=== PATIENT | male | born 1970 | race Caucasian/White ===

== ENCOUNTER 2023-03-09 00:18 | Emergency (ER) | payer OTHER, SELFPAY ==
--- OUTSIDE RECORDS SUMMARY | 2023-03-09 00:23 | XMS REPORT | Continuity of Care Document ---
:1970 Author Organization [facility] t Address [address] [facility] [address] [place] [address] Care Team Providers Name Role Phone Meaghan Leal MD Primary Care Physician NANETTE ASCENCIO Attending Clinician Unavailable Robert Dunn DO Attending Clinician [facility] Attending Clinician Unavailable MESHA GRANDA Attending Clinician Unavailable Jena Cannon MD Attending Clinician [id number] Attending Clinician Unavailable TESTING, SK COVID Attending Clinician Unavailable GAIL MCGARRY Attending Clinician Unavailable Gail Mcgarry MD Attending Clinician COVID-PFIZER VACC-2, ESDRAS Attending Clinician Unavailedilma hardwick COVID-PFIZER VACC-1, ESDRAS Attending Clinician UnavailMeaghan Sequeira MD Attending Clinician EUGENIO COREAS Attending Clinician Unavailable Payers Payer Name Policy Type Policy Number Effective Date Expiration Date S ourFormerly [facility] 2 [id number] 2021 00:00:00 BCBS 2 [id number] 2022 00:00:00 Problems Condition Condition Condition Status Onset Resolution Last Treating Co mments Source Name Details Category Date Date Treatment Clinician Date Hypertensi Hypertensi Disease Active 2021-04 M ethodi on on [facility] 00:00: Hospita 00 l Allergic Allergic Disease Active 2021-04 Metho di rhinitis rhinitis 0[facility] due to due to 00:00: Hospita pollen pollen 00 l Gastroesop Gastroesop Disease Active 2021-04 M ethodi hageal hageal 0-14 st reflux reflux 00:00: Hospita disease disease 00 l without without esophagiti esophagiti s s Benign Benign Disease Active 2020-04 Lindsey essential essential 0-22 Seyb old HTN HTN 00:00: - 00 Externa l Allergies, Adverse Reactions, Alerts This patient has no known allergies or adverse reactions. Social History Social Habit Start Date Stop Date Quantity Comments Source Sexual orientation 2022-08-01 [facility] 18:[facility]:59 [facility] Exposure to Not sure Lindsey leonard SARS-CoV-2 (event) History of Social 2023-02-05 2023-02-[address] function 00:00:00 00:00:00 Hospital Alcohol intake 2023-02-05 2023-02-05 Ex-drinker [facility] 00:00:00 00:00:00 (finding) Hospital Tobacco Comment 2022-01-19 2022-01-19 quit 30 years [facility] 00:00:00 00:00:00 ago Hospital Tobacco use and 2022-01-19 2022-01-19 Former smokeless [facility] exposure 00:00:00 00:00:00 tobacco user Hospital Alcohol Comment 2021-06-29 2021-06-29 Occ [facility] 00:00:00 00:00:00 Hospital History of tobacco 1981-01-27 User of Lindsey Sanon - use 00:00:00 smokeless External tobacco Sex Ass[birth year] At [birth year] M [facility] 00:00:00 00:00:00 Hospital Smoking Status Start Date Stop Date Source Ex-smoker 2023-02-15 00:00:00 2023-02-15 00:00:00 Lindsey Moses eybold - External Medications Ordered Filled Start Stop Current Ordering Indication Dosage Frequency Signature Comments Components Source Medication Medication Date Date Medication? Clinician (SIG) Name Name Multiple 2022-04 Yes Take by Lindsey Vitamins-Mi 1-10 mouth Seybold nerals 11:02: - (MULTIVITAL 46 Externa OR) l methylPREDN 2022-04 Yes 1{carrillo} Take 1 carrillo Lindsey ISolone 4 1-10 by mouth Seybol d MG oral 00:00: See Admin - Tablet 00 Instructio Externa Therapy ns Use as l Pack directed. azithromyci 2022-04- No [id number] Take 2 Method[facility] n 04-[address] (Zithromax 00:00: 05:59 (500 mg Hos padilla Z-Carrillo) 250 00 :00 total) by l MG tablet mouth daily for 1 day, THEN 1 tablet (250 mg total) daily for 4 days. Azithromyci 2022-04- Yes Take by Josias chester n 250 MG 04-16 mouth. Seybold oral Tablet 00:00: 05:59 - 00 :00 Externa l azithromyci 2022-04- No [id number] Take 2 Methodi n 04-[address] (Zithromax 00:00: 00:00 (500 mg Hos padilla Z-Carrillo) 250 00 :00 total) by l MG tablet mouth daily for 1 day, THEN 1 tablet (250 mg total) daily for 4 days. triamcinolo 2022-04- No [id number] 40mg M ethodi ne 02-05 st acetonide 17:15: 17:03 Hospita (KENALOG-40 00 :00 l ) injection 40 mg amLODIPine Yes TAKE 1 Metho di (NORVASC) 5 6-[address] mg tablet 00:00: DAILY Hospita 00 l lisinopriL Yes TAKE 1 Metho di (PRINIVIL) 6-[address] 20 mg 00:00: DAILY Hospita tablet 00 l omeprazole Yes TAKE 1 Metho di (PriLOSEC) 6-[address] 40 MG 00:00: DAILY Hospita capsule 00 l omeprazole 2021-04- No TAKE 1 Meth racquel (PriLOSEC) 2-26 06-[address] 40 MG 00:00: 00:00 DAILY Hospita capsule 00 :00 l lisinopriL 2022-1 2023- No TAKE 1 Meth racquel (PRINIVIL) 06-03- TABLET st 20 mg 00:00: 00:00 DAILY Hospita tablet 00 :00 l amLODIPine 2021-04- No TAKE 1 Meth racquel (NORVASC) 5 06-03- TABLET st mg tablet 00:00: 00:00 DAILY Hospit a 00 :00 l amLODIPine 2021- No TAKE 1 Meth racquel (NORVASC) 5 01-[address] mg tablet 00:00: 00:00 DAILY Hospit a 00 :00 l omeprazole 2021- No TAKE 1 Meth racquel (PriLOSEC) 01-[address] 40 MG 00:00: 00:00 DAILY Hospita capsule 00 :00 l lisinopriL 2021- No TAKE 1 Meth racquel (PRINIVIL) 01-[address] 20 mg 00:00: 00:00 DAILY Hospita tablet 00 :00 l Benzonatate Yes 100mg Take 100 K elsey 100 MG oral 6-17 mg by Seybold Capsule 00:00: mouth 3 - 00 times Externa daily l predniSONE 0 2022- No 50mg Take 50 mg Lindsey (DELTASONE) 6-17 11-10 by mouth Sey bold 50 MG oral 00:00: 00:00 daily - tablet 00 :00 Externa l Montelukast Yes Lindsey (SINGULAIR) 6-14 Seybold 10 MG oral 00:00: - Tablet 00 Externa tablet l Albuterol Yes TAKE 2 Lindsey HFA 108 (90 6-13 PUFFS Seybold Base) 00:00: EVERY 4 - MCG/ACT IN 00 HOURS Exter na AERS NEEDED FOR l WHEEZING FOR 10 DAYS BRONCHOSPA SMS FLUTICASONE Yes TAKE 2 Carmelina ey PROPIONATE, 6-13 SPRAYS IN Sey bold NASAL, 50 00:00: EACH - MCG/ACT 00 NOSTRIL 1 Externa nasal TIME PER l Suspension DAY CVS Nasal Yes TAKE 2 Lindsey [place] 0.05 6-13 SPRAYS IN Seyb old % nasal 00:00: EACH - Solution 00 NOSTRIL 2 Help Desk Manager a TIMES PER l DAY FOR 3 DAYS. D/C AFTER 3 DAYS Multiple 2021- Yes Take by Lindsey Vitamins-Mi 3-21 mouth Seybold nerals 14:19: (MULTIVITAL 14 OR) Multiple Yes Take by Lindsey Vitamins-Mi 3-21 mouth Seybold nerals 14:19: (MULTIVITAL 14 OR) Multiple 2020-04 Yes Take by Lindsey Vitamins-Mi 0-22 mouth Seybold nerals 13:36: (MULTIVITAL 46 OR) Amlodipine 2020-04 Yes Lindsey Besylate 5 0-20 Seybold MG oral 00:00: Tablet 00 Omeprazole 2020-04 Yes Lindsey 40 MG oral 0-20 Seybold Delayed 00:00: Release 00 Capsule Lisinopril 2020-04 Yes Lindsey 20 MG oral 0-20 Seybold Tablet 00:00: 00 Amlodipine 2020-04 Yes Lindsey Besylate 5 0-20 Seybold MG oral 00:00: - Tablet 00 Externa l Omeprazole 2020-04 Yes Lindsey 40 MG oral 0-20 Seybold Delayed 00:00: - Release 00 Externa Capsule l Lisinopril 2020-04 Yes Lindsey 20 MG oral 0-20 Seybold Tablet 00:00: - 00 Externa l Amlodipine 2020-04 Yes Lindsey Besylate 5 0-20 Seybold MG oral 00:00: Tablet 00 Omeprazole 2020-04 Yes Lindsey 40 MG oral 0-20 Seybold Delayed 00:00: Release 00 Capsule Lisinopril 2020-04 Yes Lindsey 20 MG oral 0-20 Seybold Tablet 00:00: 00 Amlodipine 2020-04 Yes Lindsey Besylate 5 0-20 Seybold MG oral 00:00: Tablet 00 Omeprazole 2020-04 Yes Lindsey 40 MG oral 0-20 Seybold Delayed 00:00: Release 00 Capsule Lisinopril 2020-04 Yes Lindsey 20 MG oral 0-20 Seybold Tablet 00:00: 00 Immunizations Ordered Filled Immunization Date Status Comments [facility] e Immunization Name Name Covid-19 Vaccine 2021-02-17 Completed Lindsey richards ([employer] Mrna-lnp, 00:00:00 [place] Protein, Pf, 30mcg/0.3ml,IM Covid-19 Vaccine 2021-02-17 Completed Lindsey S eybold ([employer] Mrna-lnp, 00:00:00 [place] Protein, Pf, 30mcg/0.3ml,IM Influenza Virus 2021-01-27 Completed Lindsey ybold Vaccine, age 6 00:00:00 months and up Covid-19 Vaccine 2021-01-27 Completed Lindsey S eybold ([employer] Mrna-lnp, 00:00:00 [place] Protein, Pf, 30mcg/0.3ml,IM Influenza Virus 2021-01-27 Completed Lindsey ybold Vaccine, age 6 00:00:00 months and up Covid-19 Vaccine 2021-01-27 Completed Lindsey S eybold ([employer] Mrna-lnp, 00:00:00 [place] Protein, Pf, 30mcg/0.3ml,IM Influenza Virus 2021-01-27 Completed Lindsey Rodriguez ybold Vaccine, age 6 00:00:00 months and up Covid-19 Vaccine 2021-01-27 Completed Lindsey S shilohbopal ([employer] Mrna-lnp, 00:00:00 [place]ton Protein, Pf, 30mcg/0.3ml,IM Shingles IM 2020 Completed Lindsey Seybol d ([employer]) 00:00:00 Shingles IM 2020 Completed Lindsey Seybol d (Shingrix) 00:00:00 Shingles IM 2020-08-18 Completed Lindsey Seybol d (S[employer]rix) 00:00:00 Shingles IM 2020-08-18 Completed Lindsey Seybol d ([employer]rix) 00:00:00 Shingles IM Unknown Completed Lindsey Seybol d ([employer]rix) - External Shingles IM Unknown Completed Lindsey Seybol d ([employer]) - External Influenza Virus Unknown Completed Lindsey ybold Vaccine, age 6 - External months and up Covid-19 Vaccine Unknown Completed Lindsey S shilohbold ([employer] Mrna-lnp, - Ext ernal Carlton Protein, Pf, 30mcg/0.3ml,IM Covid-19 Vaccine Unknown Completed Lindsey S shilohbold ([employer] Mrna-lnp, - Ext ernal Carlton Protein, Pf, 30mcg/0.3ml,IM FLUCELVAX QUAD PF Unknown Completed [facility] Vital Signs Vital Name Observation Time Observation Value Comments Source Systolic blood 2023-02-15 17:04:00 137 mm[Hg] Lindsey Seybold - pressure External Diastolic blood 2023-02-15 17:04:00 89 mm[Hg] Kelse y Seybold - pressure External Heart rate 2023-02-15 17:01:00 83 /min Lindsey S eybold - External Body temperature 2023-02-15 17:01:00 37.06 Perla Carmelina ey Seybold - External Respiratory rate 2023-02-15 17:01:00 16 /min Carmelina ey Seybold - External Body height 2023-02-15 17:01:00 175.3 cm Lindsey S eybold - External Body weight 2023-02-15 17:01:00 108.41 kg Lindsey S eybold - External BMI 2023-02-15 17:01:00 35.29 kg/m2 Lindsey S eybold - External Body height 2021-06-26 19:18:00 175.3 cm Lindsey S eybold Body weight 2021-06-26 19:18:00 110.224 kg Lindsey S eybold BMI 2021-06-26 19:18:00 35.88 kg/m2 Lindsey S eybold Systolic blood 2021-06-26 18:49:00 110 mm[Hg] Lindsey Seybold pressure Diastolic blood 2021-06-26 18:49:00 84 mm[Hg] Kelse y Seybold pressure Heart rate 2021-06-26 18:49:00 72 /min Lindsey S eybold Body temperature 2021-06-26 18:49:00 38 Perla Carmelina ey Seybold Respiratory rate 2021-06-26 18:49:00 16 /min Carmelina ey Seybold Body height 2021-06-26 18:49:00 175.3 cm Lindsey S eybold Body weight 2021-06-26 18:49:00 110.224 kg Lindsey S eybold BMI 2021-06-26 18:49:00 35.88 kg/m2 Lindsey S eybold Systolic blood 2021-01-27 18:33:00 126 mm[Hg] Lindsey Seybold pressure Diastolic blood 2021-01-27 18:33:00 84 mm[Hg] Kelse y Seybold pressure Heart rate 2021-01-27 18:33:00 75 /min Lindsey S eybold Body temperature 2021-01-27 18:33:00 36.89 Perla Carmelina ey Seybold Respiratory rate 2021-01-27 18:33:00 16 /min Carmelina ey Seybold Body height 2021-01-27 18:33:00 175.3 cm Lindsey S eybold Body weight 2021-01-27 18:33:00 110.678 kg Lindsey S eybold BMI 2021-01-27 18:33:00 36.03 kg/m2 Lindsey S eybold Systolic blood 2023-02-05 16:22:00 131 mm[Hg] [facility] pressure Diastolic blood 2023-02-05 16:22:00 81 mm[Hg] [facility] pressure Heart rate 2023-02-05 16:22:00 73 /min [facility] Body temperature 2023-02-05 16:22:00 36.78 [facility] height 2023-02-05 16:22:00 175.3 cm [facility] Body weight 2023-02-05 16:22:00 111.585 kg [facility] BMI 2023-02-05 16:22:00 36.33 kg/m2 [facility] Procedures This patient has no known procedures. Plan of Care Planned Activity Planned Date Details Comments Source Future Scheduled 2023-03-06 Screening for [facility] Test 19:34:17 malignant neoplasm of colon (procedure) [code = 484206865] Future Scheduled 2023-03-06 [facility] for [facility] Test 19:34:17 malignant neoplasm of colon (procedure) [code = 372944233] Future Scheduled 2023-03-06 [facility] for [facility] Test 19:34:17 malignant neoplasm of colon (procedure) [code = 857455280] Future Scheduled 2023-03-06 [facility] Test 19:34:17 screening (procedure) [code = 543316472] Future Scheduled 2023-03-06 [facility] for [facility] Test 19:34:17 malignant neoplasm of colon (procedure) [code = 194955051] Future Scheduled 2023-03-06 [facility] for [facility] Test 19:34:17 malignant neoplasm of colon (procedure) [code = 557340777] Future Scheduled 2023-03-06 SHINGLES VACCINES [facility] Test 19:34:17 (1 of 2) [code = SHINGLES VACCINES (1 of 2)] Future Scheduled 2023-03-06 COVID-19 VACCINE (3 [facility] Test 19:34:17 - season) [code = COVID-19 VACCINE (3 - season)] Encounters Start End Encounter Admission Attending Care Care Encounter Source Date/Time Date/Time Type Type Clinicians Facility Department ID 2023-02-15 2023-02-15 Outpatient LINDSEY ASCENCIO [id number] Lindsey 11:00:00 11:00:00 NANETTE leonard 2023-02-14 2023-02-14 Orders Shaun, 1.2.840.1 [id number] Methodi 00:00:00 00:00:[address] [place] 3.430.2.7 Hospit a .3.010565 l .8 2023-02-05 2023-02-05 Office Shaun 1.2.840.1 [id number] 2100 [id number] Method[facility] 11:30:00 12:03:03 Visit Robret 30536.1.[address] [place] 3.430.2.7 Hospit a .3.673020 l .8 2023-02-05 2023-02-05 Outpatient SHAUN [facility] [id number] [address] 00:00:00 00:00:[address] 2022-10-01 2022-10-01 Refill Shaun 1.2.840.1 [id number] [facility] 00:00:00 00:00:[address] [place] 3.430.2.7 Hospit a .3.744916 l .8 2022-04-02 2022-04-02 Refill Shaun 1.2.840.1 [id number] 2100 [id number] [facility] 00:00:00 00:00:[address] [place] 3.430.2.7 Hospit a .3.173640 l .8 2022-03-26 2022-03-26 Outpatient LINDSEY CLIFFORD [id number] Lindsey 13:30:00 13:30:00 [facility] Seybol d 2022-02-15 2022-02-15 Outpatient [facility] [id number] [address] 00:00:00 00:00:[address] 2022-01-19 2022-01-19 Outpatient DUNN, [facility] [id number] [address] 00:00:00 00:00:[address] 2021-10-02 2021-10-02 Outpatient LINDSEY GRANDA [id number] Lindsey 11:15:00 11:15:00 MESHA Seybo ld 2021-09-28 2021-09-28 Office ESDRAS Cannon [id number] Lindsey 09:00:00 09:15:00 [facility]686 [id number] 2021-09-19 2021-09-19 Outpatient [facility] [id number] [address] 00:00:00 00:00:[address] 2021-06-29 2021-06-29 Outpatient SHAUN, [facility] [id number] 00:00:00 00:00:[address] 2021-06-28 2021-06-28 Outpatient OKR04-ARI LINDSEY CERVANTES [id number] Lindsey 10:20:00 10:20:00 Seybol d 2021-06-28 2021-06-28 Outpatient TESTING, SK LINDSEY CERVANTES [id number] Lindsey 10:00:00 10:00:00 Seybol d 2021-06-28 2021-06-28 Outpatient LINDSEY MCGARRY [id number] Lindsey 00:00:00 00:00:00 BAZGHA Seybol d 2021-06-27 2021-06-27 Outpatient TESTING, SK LINDSEY CERVANTES [id number] Lindsey 10:20:00 10:20:00 Seybol d 2021-06-26 2021-06-26 Telemedici ESDRAS MCGARRY 1.2.840.114 [id number] Lindsey 14:45:00 14:45:00 ne [facility] 350.1.13.13 Se ybold 1.2.7.2.686 [id number] 2021-06-26 2021-06-26 Office ESDRAS Mcgarry 1.2.840.114 [id number] Lindsey 14:30:00 14:45:00 Visit [facility] 350.1.13.13 Se ybold 1.2.7.2.686 [id number] 2021-02-17 2021-02-17 Outpatient COVID-PFIZE LINDSEY CERVANTES [id number] Lindsey 13:20:00 13:20:00 R VACC-2, Seyb kenton [place] 2021-01-27 2021-01-27 Outpatient COVID-PFIZE LINDSEY CERVANTES [id number] Lindsey 16:10:00 16:10:00 R VACC-1, Seyb old [place] 2021-01-27 2021-01-27 Office ESDRAS Leal 1.2.840.114 [id number] Lindsey 13:03:20 13:18:20 Visit [facility] [id number] Se ybold 1.2.7.2.686 [id number] 2020-10-26 2020-10-26 Emergency [facility] [id number] [place] [address] 00:00:00 00:00:00 EUGENIO [address] Results This patient has no known results.
[2023-03-09 01:41] LABS: Absolute Lymphocytes (CBC) 0.6 K/uL (0.7-4.9); Hematocrit 51.3 % (39.6-49.0); Lymphocytes % 4.4 % (15.3-44.8); MCV 91.7 fL (80-100); MPV 7.4 fL (7.6-11.3); Platelets 271 thou/uL (152-406); RBC Red Blood Cell Count 5.59 M/uL (4.33-5.43)
[2023-03-09] MEDS ORDERED: ONDANSETRON 4 MG/2 ML VIAL ONE (01:43)
[2023-03-09] MEDS ORDERED: NA CHLORIDE 0.9% 2,000 ML ONE (01:44)
[2023-03-09 02:00] LABS: Albumin 4.4 g/dL (3.4-5.0); Potassium 3.8 mEq/L (3.5-5.1); Protein, Total 8.5 g/dL (6.4-8.2)
--- NOTE | 2023-03-09 02:59 | ER ---
Nurse's Notes [facility] Name: Willian Batista Age: 52 yrs Sex: Male : 1970 Arrival Date: 03/09/2023 Time: 00:18 Bed 5 Private MD: Diagnosis: Nausea with vomiting, unspecified Presentation: 03/09 00:54 Chief complaint: Patient states: nauseous since around 8 and has thrown up 2 times. vc1 Coronavirus screen: Vaccine status: Patient reports receiving the 2nd dose of the covid vaccine. [employer] Client denies travel out of the [place] in the last 14 days. diarrhea, nausea, vomiting. Client presents with at least one sign or symptom that may indicate coronavirus-19. Ebola Screen: Patient negative for fever greater than or equal to 101.5 degrees Fahrenheit, and additional compatible Ebola Virus Disease symptoms Patient denies exposure to infectious person. Patient denies travel to an Ebola-affected area in the 21 days before illness onset. No symptoms or risks identified at this time. Initial Sepsis Screen: Does the patient have a suspected source of infection? No. Patient's initial sepsis screen is negative. Risk Assessment: Do you want to hurt yourself or someone else? Patient reports no desire to harm self or others. Onset of symptoms was March 08, 2023 at 20:00. 00:54 Method Of Arrival: Ambulatory vc1 00:54 Acuity: ERICK 3 vc1 01:01 Initial Sepsis Screen: Does the patient meet any 2 criteria? No. Patient's initial vc1 sepsis screen is negative. Triage Assessment: 00:58 General: Appears in no apparent distress. uncomfortable, Behavior is calm, cooperative, vc1 appropriate for age. Pain: Denies pain. EENT: No deficits noted. No signs and/or symptoms were reported regarding the EENT system. Neuro: No deficits noted. Cardiovascular: No deficits noted. Respiratory: Airway is patent Respiratory effort is even, unlabored, Respiratory pattern is regular, symmetrical. GI: Reports diarrhea, nausea, vomiting. : No deficits noted. No signs and/or symptoms were reported regarding the genitourinary system. Derm: No deficits noted. No signs and/or symptoms reported regarding the dermatologic system. Musculoskeletal: No deficits noted. No signs and/or symptoms reported regarding the musculoskeletal system. Historical: - Allergies: 00:56 No Known Allergies; vc1 - Home Meds: 00:56 lisinopril 20 mg Oral tablet [Active]; amlodipine 5 mg tablet [Active]; vc1 - PMHx: 00:56 Hypertensive disorder; vc1 - PSHx: 00:56 None; vc1 - Immunization history:: Client reports receiving the 2nd dose of the Covid vaccine, Flu vaccine is up to date. - Social history:: Smoking status: Patient denies any tobacco usage or history of. - Family history:: not pertinent. Screenin:57 [facility] ED Fall Risk Assessment (Adult) History of falling in the last 3 months, vc1 including since admission No falls in past 3 months (0 pts) Confusion or Disorientation No (0 pts) Intoxicated or Sedated No (0 pts) Impaired Gait No (0 pts) Mobility Assist Device Used No (0 pt) Altered Elimination No (0 pt) Score/Fall Risk Level 0 - 2 = Low Risk Oriented to surroundings, Maintained a safe environment, Educated pt \T\ family on fall prevention, incl call for assistance when getting out of bed. Abuse screen: Denies threats or abuse. Nutritional screening: No deficits noted. Tuberculosis screening: No symptoms or risk factors identified. Assessment: 03:12 General: General: Appears comfortable. nw1 03:12 GI: Reports intolerance of fluids, intolerance of food, nausea, vomiting. nw1 Vital Signs: 00:54 Weight 108.86 kg; Height 5 ft. 9 in. ; Pain 0/10; vc1 00:58 BP 143 / 100; Pulse 100; Resp 15; Temp 98.4; Pulse Ox 96% ; vc1 03:14 BP 139 / 86; Pulse 88; Resp 15; Pulse Ox 99% ; nw1 00:54 Body Mass Index 35.44 (108.86 kg, 175.26 cm) vc1 00:54 Pain Scale: Adult vc1 ED Course: 00:30 Patient arrived in ED. jj6 00:31 Brice Thomas MD is Attending Physician. rt 00:56 Triage completed. vc1 00:57 Arm band placed on right wrist. vc1 01:28 Inserted saline lock: 20 gauge in right forearm, using aseptic technique. Blood ls5 collected. 01:35 Rosanne Yung RN is Primary Nurse. nw1 03:13 Patient has correct armband on for positive identification. Side rails up X2. Provided nw1 Education on: POC. 03:13 No provider procedures requiring assistance completed. IV discontinued, intact, nw1 bleeding controlled, No redness/swelling at site. Pressure dressing applied, 20g right forearm. Administered Medications: 01:35 Drug: Ondansetron IVP 4 mg IVP once; over 2 minutes Route: IVP; Site: right forearm; nw1 01:35 Drug: NS 0.9% IV 1000 ml IV at 1 bolus Per protocol; 1000 mL bolus Route: IV; Rate: 1 nw1 bolus; Site: right forearm; Medication: 01:01 VIS not applicable for this client. vc1 Outcome: 02:58 Discharge ordered by . rt 03:13 Discharged to home ambulatory, nw1 03:13 Condition: stable 03:13 Condition: stable 03:13 Discharge instructions given to patient, Instructed on discharge instructions, follow up and referral plans. medication usage, Demonstrated understanding of instructions, follow-up care, medications, Prescriptions given X 1, 03:14 Patient left the ED. nw1 Signatures: Leonora Alvaresj6 Georgia Donnelly, RN RN vc1 Brice Thomas MD MD rt Marino Flores ls5 Rosanne Yung, RN RN nw1 Corrections: (The following items were deleted from the chart) 03:13 03:12 General: nw1 nw1
--- NOTE | 2023-03-09 02:59 | EDPHYS ---
Physician Documentation [facility] Name: Willian Batista Age: 52 yrs Sex: Male : 1970 Arrival Date: 03/09/2023 Time: 00:18 Bed 5 Private MD: ED Physician Brice Thomas HPI: 03/09 05:36 This 52 yrs old Male presents to ER via Ambulatory with complaints of Nausea/Vomiting, rt BROUGHT IN BY EMPLOYER REQUESTING FOR DRUG SCREEN. 05:36 Patient presents to the ED with nausea, vomiting since 8 PM. Denies any abdominal pain. rt He does report nonbloody diarrhea. Denies other acute complaints at this time, symptoms are moderate in severity, no other aggravating alleviating factors.. Historical: - Allergies: 00:56 No Known Allergies; vc1 - Home Meds: 00:56 lisinopril 20 mg Oral tablet [Active]; amlodipine 5 mg tablet [Active]; vc1 - PMHx: 00:56 Hypertensive disorder; vc1 - PSHx: 00:56 None; vc1 - Immunization history:: Client reports receiving the 2nd dose of the Covid vaccine, Flu vaccine is up to date. - Social history:: Smoking status: Patient denies any tobacco usage or history of. - Family history:: not pertinent. ROS: 05:36 Constitutional: Negative for fever, chills, and weight loss, Cardiovascular: Negative rt for chest pain, palpitations, and edema, Respiratory: Negative for shortness of breath, cough, wheezing, and pleuritic chest pain, MS/Extremity: Negative for injury and deformity, Skin: Negative for injury, rash, and discoloration, Neuro: Negative for headache, weakness, numbness, tingling, and seizure, Psych: Negative for depression, anxiety, suicide ideation, homicidal ideation, and hallucinations, 05:36 Abdomen/GI: Positive for nausea, vomiting, and diarrhea, Negative for abdominal pain, Exam: 05:36 Constitutional: This is a well developed, well nourished patient who is awake, alert, rt and in no acute distress. Head/Face: Normocephalic, atraumatic. Neck: Trachea midline, no thyromegaly or masses palpated, and no cervical lymphadenopathy. Supple, full range of motion without nuchal rigidity, or vertebral point tenderness. No Meningismus. Chest/axilla: Normal chest wall appearance and motion. Nontender with no deformity. No lesions are appreciated. Cardiovascular: Regular rate and rhythm with a normal S1 and S2. No gallops, murmurs, or rubs. Normal PMI, no JVD. No pulse deficits. Respiratory: Lungs have equal breath sounds bilaterally, clear to auscultation and percussion. No rales, rhonchi or wheezes noted. No increased work of breathing, no retractions or nasal flaring. Abdomen/GI: Soft, non-tender, with normal bowel sounds. No distension or tympany. No guarding or rebound. No evidence of tenderness throughout. Skin: Warm, dry with normal turgor. Normal color with no rashes, no lesions, and no evidence of cellulitis. MS/ Extremity: Pulses equal, no cyanosis. Neurovascular intact. Full, normal range of motion. Neuro: Awake and alert, GCS 15, oriented to person, place, time, and situation. Cranial nerves II-XII grossly intact. Motor strength 5/5 in all extremities. Sensory grossly intact. Cerebellar exam normal. Normal gait. Psych: Awake, alert, with orientation to person, place and time. Behavior, mood, and affect are within normal limits. Vital Signs: 00:54 Weight 108.86 kg; Height 5 ft. 9 in. ; Pain 0/10; vc1 00:58 BP 143 / 100; Pulse 100; Resp 15; Temp 98.4; Pulse Ox 96% ; vc1 03:14 BP 139 / 86; Pulse 88; Resp 15; Pulse Ox 99% ; nw1 00:54 Body Mass Index 35.44 (108.86 kg, 175.26 cm) vc1 00:54 Pain Scale: Adult vc1 MDM: 01:13 Patient medically screened. rt 05:36 Differential diagnosis: Gastroenteritis, pancreatitis. Data reviewed: vital signs, rt nurses notes, lab test result(s). I considered the following discharge prescriptions or medication management in the emergency department Medications were administered in the Emergency Department. See MAR. Test considered but Not performed: CT: No abdominal pain, abdominal tenderness, symptoms resolved with Zofran, IV fluids, low suspicion for surgical pathology such as cholecystitis, appendicitis, CT scan not indicated. Care significantly affected by the following chronic conditions: Hypertension. Counseling: I had a detailed discussion with the patient and/or guardian regarding the historical points, exam findings, and any diagnostic results supporting the discharge/admit diagnosis, lab results, the need for outpatient follow up, to return to the emergency department if symptoms worsen or persist or if there are any questions or concerns that arise at home. Response to treatment: the patient's symptoms have resolved after treatment. 03/09 01:17 Order name: CBC with Diff rt 03/09 01:17 Order name: CMP; Complete Time: 02:02 rt 03/09 01:17 Order name: Lipase; Complete Time: 02: rt Administered Medications: 01:35 Drug: Ondansetron IVP 4 mg IVP once; over 2 minutes Route: IVP; Site: right forearm; nw1 01:35 Drug: NS 0.9% IV 1000 ml IV at 1 bolus Per protocol; 1000 mL bolus Route: IV; Rate: 1 nw1 bolus; Site: right forearm; Disposition Summary: 03/09/23 02:58 Discharge Ordered Notes: Location: Home rt Problem: new rt Symptoms: have improved rt Condition: Stable rt Diagnosis - Nausea with vomiting, unspecified rt Followup: rt - With: Private Physician - When: 2 - 3 days - Reason: Discharge Instructions: - Discharge Summary Sheet rt - Nausea and Vomiting, Adult rt Forms: - Medication Reconciliation Form rt - Thank You Letter rt - Antibiotic Education rt - Prescription Opioid Use rt - Patient Portal Instructions rt - Leadership Thank You Letter rt - Work release form nw1 Prescriptions: - ondansetron 4 mg Oral Tablet,disintegrating - take 1 tablet ORAL route every 6 hours; 18 tablet; Refills: 0, Product rt Selection Permitted Signatures: Dispatcher [employer] ANGIELA Georgia Donnelly RN RN vc1 Brice Thomas MD MD rt Rosanne Yung, REGAN RN nw1
[2023-03-09 04:04] LABS: Blood Morphology Comment NOT SEEN (NOT SEEN); Platelet Estimate ADEQ; White Blood Cell Scan OK (OK)
[2023-03-09 04:07] VITALS: BP 139/86; O2SAT 99
[2023-03-09 04:09] VITALS: TEMP 98.4
== END 2023-03-09 03:14 | disposition home or self-care (01) ==
LOC: ER 00:18
DX: R11.2 Nausea with vomiting, unspecified (principal); I10 Essential (primary) hypertension
CPT/HCPCS: 85025; 36415; 83690; 80053; 96374; 99284; J2405; J7030